=== PATIENT | male | born 1980 | race Caucasian/White ===

== ENCOUNTER → 2020-01-26 10:32 | Outpatient (BNVA) | payer OTHER, SELFPAY | PROVIDERS: Visit Provider Internal Medicine | DX: M79.601 Pain in right arm (principal); S19.9XXA Unspecified injury of neck, initial encounter; X50.0XXA Overexertion from strenuous movement or load, initial encounter | CPT/HCPCS: 72050; 99214 ==

== ENCOUNTER → 2020-02-09 09:54 | Outpatient (BNVA) | payer OTHER, SELFPAY | PROVIDERS: Visit Provider Internal Medicine | DX: M79.601 Pain in right arm (principal); M50.10 Cervical disc disorder with radiculopathy, unspecified cervical region | CPT/HCPCS: 99213 ==

== ENCOUNTER 2020-02-13 09:00 | Outpatient (RCR) | payer OTHER, SELFPAY | END 2020-03-28 09:13 | disposition home or self-care (01) | LOC: HO.OT 09:00 | PROVIDERS: Visit Provider Internal Medicine | DX: M79.601 Pain in right arm (principal); M47.812 Spondylosis without myelopathy or radiculopathy, cervical region; M50.322 Other cervical disc degeneration at C5-C6 level | CPT/HCPCS: 97014; 97110; 97140; 97165; 99213 ==

== ENCOUNTER → 2020-02-14 11:46 | Outpatient (BNVA) | payer OTHER, SELFPAY | PROVIDERS: Visit Provider Internal Medicine | DX: M79.601 Pain in right arm (principal); M50.10 Cervical disc disorder with radiculopathy, unspecified cervical region | CPT/HCPCS: 99214 ==

== ENCOUNTER → 2020-02-28 09:57 | Outpatient (BNVA) | payer OTHER, SELFPAY | PROVIDERS: Visit Provider Internal Medicine | DX: M79.621 Pain in right upper arm (principal) | CPT/HCPCS: 99213 ==

== ENCOUNTER 2020-02-28 10:41 | Outpatient (REF) | payer OTHER, SELFPAY | END 2020-02-28 10:42 | disposition home or self-care (01) | LOC: HO.LAB 10:41 | PROVIDERS: Visit Provider Internal Medicine | DX: Z20.828 Contact with and (suspected) exposure to other viral communicable diseases (principal) | CPT/HCPCS: C9803; U0003 ==

== ENCOUNTER 2020-03-04 16:53 | Outpatient (REF) | payer OTHER, SELFPAY ==
--- NOTE | 2020-03-04 17:30 | MR_ITS ---
EXAMINATION: MR CERVICAL SPINE WITHOUT CONTRAST CLINICAL INFORMATION: Right radicular arm pain. Positive [place] test. DJD. COMPARISON: None available. TECHNIQUE: MRI of the cervical spine was performed using routine sequences without contrast. FINDINGS: The vertebral body heights are maintained. There is minimal retrolisthesis of C5 on C6 with moderate disc height loss. No bone marrow edema is seen. The cervical cord signal appears normal. The imaged portions of the intracranial contents appear normal. The extraspinal soft tissues appear normal. SPINAL LEVELS: C2-C3: Mild disc osteophyte complex with left uncovertebral hypertrophy resulting in mild narrowing of the left neural foramen. No spinal canal stenosis. C3-C4: Mild disc bulging. No spinal canal or neural foraminal stenosis. C4-C5: Mild disc bulging asymmetric to the left with left uncovertebral hypertrophy results in mild left neural foraminal stenosis. C5-C6: Disc osteophyte complex with bilateral uncovertebral hypertrophy resulting in moderate to severe bilateral neural foraminal stenosis. No spinal canal stenosis. C6-C7: No posterior disc abnormality. No spinal canal or neural foraminal stenosis. C7-T1: No posterior disc abnormality. No spinal canal or neural foraminal stenosis. MR/MR cervical spine wo con IMPRESSION: Multilevel degenerative spondylotic changes without significant narrowing of the spinal canal. At C5-C6 there is moderate to severe bilateral neural foraminal stenosis.
== END 2020-03-04 16:54 | disposition home or self-care (01) ==
LOC: HO.MRI 16:53
PROVIDERS: Visit Provider Internal Medicine
DX: M79.2 Neuralgia and neuritis, unspecified (principal); M79.601 Pain in right arm
CPT/HCPCS: 72141

== ENCOUNTER → 2020-03-07 15:26 | Outpatient (BNVA) | payer OTHER, SELFPAY | PROVIDERS: Visit Provider Internal Medicine | DX: M47.22 Other spondylosis with radiculopathy, cervical region (principal); M50.10 Cervical disc disorder with radiculopathy, unspecified cervical region; M79.601 Pain in right arm | CPT/HCPCS: 99213 ==

== ENCOUNTER → 2020-03-21 15:11 | Outpatient (BNVA) | payer OTHER, SELFPAY | PROVIDERS: Visit Provider Internal Medicine | DX: M79.601 Pain in right arm (principal); M54.10 Radiculopathy, site unspecified | CPT/HCPCS: 99213 ==

== ENCOUNTER → 2020-03-27 15:28 | Outpatient (BNVA) | payer OTHER, SELFPAY | PROVIDERS: Visit Provider Internal Medicine | DX: M54.10 Radiculopathy, site unspecified (principal) | CPT/HCPCS: 99213 ==

== ENCOUNTER 2020-04-29 09:18 | Outpatient (REF) | payer OTHER, SELFPAY | END 2020-04-29 09:19 | disposition home or self-care (01) | LOC: HO.LAB 09:18 | PROVIDERS: Visit Provider Internal Medicine | DX: Z20.822 Contact with and (suspected) exposure to COVID-19 (principal) | CPT/HCPCS: 36415; C9803; U0003 ==

== ENCOUNTER → 2020-06-12 13:57 | Outpatient (BNVA) | payer OTHER, SELFPAY | PROVIDERS: Visit Provider Physician Assistant | DX: M47.892 Other spondylosis, cervical region (principal); M54.12 Radiculopathy, cervical region | CPT/HCPCS: 99214 ==

== ENCOUNTER → 2020-06-20 12:14 | Outpatient (BNVA) | payer OTHER, SELFPAY | PROVIDERS: Visit Provider Internal Medicine | DX: M54.12 Radiculopathy, cervical region (principal); R20.0 Anesthesia of skin | CPT/HCPCS: 99214 ==

== ENCOUNTER → 2020-07-01 11:11 | Outpatient (BNVA) | payer OTHER, SELFPAY | PROVIDERS: Visit Provider Internal Medicine | DX: M79.602 Pain in left arm (principal); M79.601 Pain in right arm; M54.10 Radiculopathy, site unspecified; M19.09 Primary osteoarthritis, other specified site | CPT/HCPCS: 99213 ==

== ENCOUNTER → 2020-07-04 11:07 | Outpatient (BNVA) | payer OTHER, SELFPAY | PROVIDERS: Visit Provider Internal Medicine | DX: M79.603 Pain in arm, unspecified (principal); G54.9 Nerve root and plexus disorder, unspecified | CPT/HCPCS: 99213 ==

== ENCOUNTER 2020-07-10 09:28 | Outpatient (REF) | payer OTHER, SELFPAY ==
[2020-07-10 10:01] LABS: COVID-19 Test Negative (Negative)
== END 2020-07-10 09:29 | disposition home or self-care (01) ==
LOC: HO.LAB 09:28
PROVIDERS: Visit Provider Internal Medicine
DX: Z20.822 Contact with and (suspected) exposure to COVID-19 (principal)
CPT/HCPCS: 36415; 87635; C9803

== ENCOUNTER → 2020-07-12 10:53 | Outpatient (BNVA) | payer OTHER, SELFPAY | PROVIDERS: Visit Provider Internal Medicine | DX: G54.2 Cervical root disorders, not elsewhere classified (principal) | CPT/HCPCS: 99213 ==

== ENCOUNTER 2020-07-15 10:19 | Outpatient (REF) | payer OTHER, SELFPAY ==
[2020-07-15 10:52] LABS: COVID-19 Test Positive (Negative)
== END 2020-07-15 10:20 | disposition home or self-care (01) ==
LOC: HO.LAB 10:19
PROVIDERS: Visit Provider Internal Medicine
DX: Z20.822 Contact with and (suspected) exposure to COVID-19 (principal)
CPT/HCPCS: 36415; 87635; C9803

== ENCOUNTER 2020-07-24 10:35 | Outpatient (REF) | payer OTHER, SELFPAY ==
[2020-07-24 11:18] LABS: COVID-19 Test Negative (Negative)
== END 2020-07-24 10:36 | disposition home or self-care (01) ==
LOC: HO.LAB 10:35
PROVIDERS: Visit Provider Internal Medicine
DX: Z20.822 Contact with and (suspected) exposure to COVID-19 (principal)
CPT/HCPCS: 36415; 87635; C9803

== ENCOUNTER → 2020-07-26 11:02 | Outpatient (BNVA) | payer OTHER, SELFPAY | PROVIDERS: Visit Provider Internal Medicine | DX: M54.12 Radiculopathy, cervical region (principal) | CPT/HCPCS: 99213 ==

== ENCOUNTER 2021-03-02 13:41 | Emergency (ER) | payer MEDICAID, SELFPAY ==
--- NOTE | 2021-03-02 | ECG_ITS ---
Test Reason : CHEST PAIN Blood Pressure : / mmHG Vent. Rate : 096 BPM Atrial Rate : 096 BPM P-R Int : 156 ms QRS Dur : 100 ms QT Int : 346 ms P-R-T Axes : 016 059 008 degrees QTc Int : 437 ms Normal sinus rhythm Normal ECG T wave amplitude has decreased in Inferior leads Referred By: Nomi Blackwell Electronically Signed By:OG LEROY MD
[2021-03-02 14:02] VITALS: BP 131/87; PULSE 98; RESP 18; TEMP 36.8; O2SAT 95; BMI 24.9
== END 2021-03-02 20:02 | disposition left against medical advice (07) ==
PROVIDERS: Emergency Provider Emergency Medicine
DX: R07.9 Chest pain, unspecified (principal); I10 Essential (primary) hypertension
CPT/HCPCS: 93005; 99282; 99283